=== PATIENT | male | born 1995 | race African-American/Black ===

== ENCOUNTER 2022-06-22 13:28 | Emergency (ER) | payer MEDICAID, OTHER ==
[~2022-06-22] VITALS: Ht 180.3 cm; Wt 63.0 kg
[2022-06-22 13:40] VITALS: BP 115/88
[2022-06-22] MEDS ORDERED: SODIUM CHLORIDE 0.9% 500 ML IV ONE (14:45)
[2022-06-22 14:54] LABS: BASOPHILS % 0.7 % (0.0-2.0); CLARITY URINE CLEAR (CLEAR); COLOR URINE YELLOW (YELLOW); EOSINOPHILS % 1.1 % (0.0-5.0); HEMATOCRIT. 47.7 % (42.0-52.0); HEMOGLOBIN. 16.3 g/dL (14.0-18.0); KETONES URINE 3+ (NEGATIVE); LEUKOCYTE ESTERASE URINE NEGATIVE (NEGATIVE); LYMPHOCYTES % 28.2 % (20.0-50.0); MEAN CORPUSCULAR HEMOGLOBIN 30.9 pg (28.0-32.0); MEAN CORPUSCULAR VOLUME 90.7 fL (80.0-94.0); MEAN PLATELET VOLUME 7.6 fl (7.4-10.4); MONOCYTES % 9.6 % (2.0-8.0); NEUTROPHILS % 60.4 % (40.0-76.0); NITRITE URINE NEGATIVE (NEGATIVE); OCCULT BLOOD URINE NEGATIVE (NEGATIVE); PLATELET 295 x1000/uL (130-400); PROTEIN URINE 1+ (NEGATIVE); RED BLOOD CELL COUNT 5.26 mill/uL (4.7-6.1); RED CELL DISTRIBUTION WIDTH 13.8 % (11.6-14.6); SPECIFIC GRAVITY URINE 1.039 (1.005-1.030)
[2022-06-22 15:16] LABS: CHLORIDE 98 mEq/L (98-107)
[2022-06-22] MEDS ORDERED: POLY250017 MT (16:27)
== END 2022-06-22 17:11 | disposition home or self-care (01) ==
LOC: ER 13:47
DX: K59.00 Constipation, unspecified (principal); R10.30 Lower abdominal pain, unspecified; E86.0 Dehydration
CPT/HCPCS: 36415; 74018; 80053; 81003; 83690; 85025; 96360; 99284; J7030

== ENCOUNTER 2024-09-30 06:33 | Emergency (ER) | payer MEDICAID ==
[~2024-09-30] VITALS: Ht 177.8 cm; Wt 68.0 kg
[~2024-09-30 06:33] MED LIST: POLY250017 MT
[2024-09-30 07:06] VITALS: O2SAT 100
[2024-09-30] MEDS: ONDANSETRON HCL 4MG/2ML INJ IM STA (07:52)
[2024-09-30] MEDS: FAMOTIDINE 20MG TABLET PO ONE (07:52)
[2024-09-30] MEDS: KETOROLAC 30MG/ML VIAL IM STA (07:53)
[2024-09-30 07:55] LABS: BASOPHILS % 0.9 % (0.0-2.0); EOSINOPHILS % 0.3 % (0.0-5.0); HEMATOCRIT. 41.2 % (42.0-52.0); HEMOGLOBIN. 13.6 g/dL (14.0-18.0); LYMPHOCYTES % 18.7 % (20.0-50.0); MEAN CORPUSCULAR HEMOGLOBIN 29.8 pg (28.0-32.0); MEAN CORPUSCULAR VOLUME 90.3 fL (80.0-94.0); MEAN PLATELET VOLUME 7.1 fl (7.4-10.4); MONOCYTES % 8.1 % (2.0-8.0); PLATELET 380 x1000/uL (130-400); RED BLOOD CELL COUNT 4.56 mill/uL (4.7-6.1); RED CELL DISTRIBUTION WIDTH 13.9 % (11.6-14.6); WHITE BLOOD COUNT 9.2 x1000/uL (4.5-11.0)
[2024-09-30 08:11] LABS: CHLORIDE 98 mEq/L (98-107); POTASSIUM 3.7 mEq/L (3.5-5.1); SODIUM 136 mEq/L (136-145)
[2024-09-30 08:12] LABS: CLARITY URINE CLEAR (CLEAR); COLOR URINE DARK YELLOW (YELLOW); GLUCOSE URINE NEGATIVE (NEGATIVE); KETONES URINE TRACE (NEGATIVE); LEUKOCYTE ESTERASE URINE TRACE (NEGATIVE); NITRITE URINE NEGATIVE (NEGATIVE); OCCULT BLOOD URINE NEGATIVE (NEGATIVE); PH URINE 6.5 (4.5-8.0); PROTEIN URINE 1+ (NEGATIVE); SPECIFIC GRAVITY URINE 1.035 (1.005-1.030)
[2024-09-30 08:12] LABS: CARBON DIOXIDE 29 mEq/L (21-32)
[2024-09-30 08:18] LABS: GLUCOSE 117 mg/dL (70-105); UREA NITROGEN BLOOD 19 mg/dL (9-23)
[2024-09-30 08:19] LABS: ALANINE AMINOTRANSFERASE 22 IU/L (10-49); ALBUMIN 4.7 g/dL (3.2-4.8); ASPARTATE AMINOTRANSFERASE 23 IU/L (<34)
[2024-09-30 08:20] LABS: BILIRUBIN DIRECT 0.2 mg/dL (<=3.0); BILIRUBIN TOTAL 0.6 mg/dL (0.1-1.0); PROTEIN TOTAL 7.8 g/dL (6.0-8.3)
[2024-09-30] MEDS ORDERED: BISM-77 MT (08:33)
[2024-09-30 08:34] LABS: BACTERIA URINE 1+; RBC URINE NONE SEEN /hpf (0-2); SQUAMOUS EPITHELIAL CELL URINE NONE SEEN /lpf (RARE/1+); YEAST URINE NONE SEEN
[2024-09-30] MEDS ORDERED: ACET-2708 MT (08:34)
[2024-09-30] MEDS ORDERED: ONDA4TAB50 PO (08:34)
[2024-09-30 08:52] VITALS: BP 115/74; PULSE 60; RESP 18; TEMP 36.78072; O2SAT 100
== END 2024-09-30 08:56 | disposition home or self-care (01) ==
LOC: ER 06:33
DX: K29.00 Acute gastritis without bleeding (principal); R19.7 Diarrhea, unspecified
CPT/HCPCS: 99284; 80076; 80048; 81003; 83690; 85025; 36415; 96372; J1885; J2405

== ENCOUNTER 2024-10-02 03:32 | Emergency (ER) | payer MEDICAID, OTHER ==
[~2024-10-02] VITALS: Ht 177.8 cm; Wt 68.0 kg
[~2024-10-02 03:32] MED LIST changes: +ACET-2708 MT; +BISM-77 MT; +ONDA4TAB50 PO
[2024-10-02 04:04] VITALS: O2SAT 98
[2024-10-02 04:54] LABS: BASOPHILS % 0.9 % (0.0-2.0); HEMATOCRIT. 47.9 % (42.0-52.0); HEMOGLOBIN. 15.8 g/dL (14.0-18.0); LYMPHOCYTES % 24.2 % (20.0-50.0); MEAN CORPUSCULAR HEMOGLOBIN 29.9 pg (28.0-32.0); MEAN CORPUSCULAR VOLUME 90.9 fL (80.0-94.0); MONOCYTES % 8.8 % (2.0-8.0); NEUTROPHILS % 65.1 % (40.0-76.0); PLATELET 444 x1000/uL (130-400); RED BLOOD CELL COUNT 5.28 mill/uL (4.7-6.1); RED CELL DISTRIBUTION WIDTH 13.7 % (11.6-14.6); WHITE BLOOD COUNT 13.2 x1000/uL (4.5-11.0)
[2024-10-02] MEDS: ONDANSETRON HCL 4MG/2ML INJ IM ONE (05:01)
[2024-10-02 05:11] LABS: CHLORIDE 95 mEq/L (98-107); POTASSIUM 3.5 mEq/L (3.5-5.1); SODIUM 134 mEq/L (136-145)
[2024-10-02 05:12] LABS: CALCIUM 10.4 mg/dL (8.7-10.4); CARBON DIOXIDE 31 mEq/L (21-32)
[2024-10-02 05:17] LABS: GLUCOSE 98 mg/dL (70-105); UREA NITROGEN BLOOD 20 mg/dL (9-23)
[2024-10-02 05:19] LABS: ALANINE AMINOTRANSFERASE 19 IU/L (10-49); ALBUMIN 5.2 g/dL (3.2-4.8); ASPARTATE AMINOTRANSFERASE 17 IU/L (<34); BILIRUBIN TOTAL 0.7 mg/dL (0.1-1.0); PROTEIN TOTAL 8.6 g/dL (6.0-8.3)
[2024-10-02 05:24] LABS: CREATININE 1.4 mg/dL (0.6-1.3)
[2024-10-02] MEDS: HALOPERIDOL LACTATE 5MG/ML VIAL IM ONE (07:00)
[2024-10-02] MEDS: SODIUM CHLORIDE 0.9% 1,000 ML IV ONE (07:00)
[2024-10-02] MEDS ORDERED: FAMO-135 MT (08:19)
[2024-10-02 11:21] VITALS: BP 122/74; PULSE 87; RESP 18; TEMP 36.78072; O2SAT 98
== END 2024-10-02 11:40 | disposition home or self-care (01) ==
LOC: ER 03:32
DX: K29.70 Gastritis, unspecified, without bleeding (principal); N17.9 Acute kidney failure, unspecified; F12.90 Cannabis use, unspecified, uncomplicated
CPT/HCPCS: 80053; 83690; 85025; 36415; 96360; 96372; 99284; J2405; J7030; Z7610